=== PATIENT | male | born 1970 | race American Indian/Alaskan Native ===

== ENCOUNTER 2017-01-19 14:41 | Emergency (ER) | payer BC, OTHER ==
[2017-01-19 14:54] VITALS: BP 133/76
[2017-01-19] MEDS ORDERED: Diphtheria,Pertussis(Acell),Tetanus Vaccine 0.5 ML Syringe IM ONE (15:02)
[2017-01-19] MEDS ORDERED: Lidocaine 1% 20 ML MDV ONE (15:07)
[2017-01-19] MEDS ORDERED: Octyl 2-Cyanoacrylate 1 APPLIC TUBE ONE (15:11)
--- NOTE | 2017-01-19 15:19 | EDM.PDOC ---
ED HPI Skin/Rash - General Chief Complaint: Laceration Stated Complaint: CUT FINGER ON LT HAND Time Seen by Provider: 01/19/17 15:01 - History of Present Illness INITIAL COMMENTS - FREE TEXT/NARRATIVE: HISTORY AND PHYSICAL: History of present illness: The patient is a 46-year-old male who is unsure of his last tetanus shot presents with a superficial laceration to his left thumb that occurred while he was cutting lettuce at home. Patient was concerned because initially it was bleeding a lot and he put a pressure dressing on. He doesn't complain of pain in the area and there are no other injuries on the hand or fingers. Patient has a history of multiple other lacerations and one surgery on the thumb in the past. Neurosensory is intact. Review of systems: As per history of present illness and below otherwise all systems reviewed and negative. Past medical history: As per history of present illness and as reviewed below otherwise noncontributory. Surgical history: As per history of present illness and as reviewed below otherwise noncontributory. Social history: No reported history of drug or alcohol abuse. Family history: As per history of present illness and as reviewed below otherwise noncontributory. Physical exam: General: Well-developed overweight male who is nontoxic and [facility] and review by me HEENT: Atraumatic, normocephalic, negative for conjunctival pallor or scleral icterus, mucous membranes moist, throat clear, neck supple, nontender, trachea midline. Lungs: Clear to auscultation, breath sounds equal bilaterally, chest nontender. Heart: S1S2, regular rate and rhythm no overt murmurs Genitourinary: Deferred. Rectal: Deferred. Extremities: Atraumatic except for the soft tissue tuft of the left thumb where there is a 1.2 cm total length superficial laceration with a slight curve to it. There is no bleeding appreciated no swelling no tenderness and the skin edges are reapproximated. The laceration does not involve the nail. Neurosensory is intact and flexion and extension at the distal phalanx is intact., negative for cords or calf pain. Neurovascular unremarkable. Neuro: Awake, alert, oriented. Cranial nerves II through XII unremarkable. Cerebellum unremarkable. Motor and sensory unremarkable throughout. Exam nonfocal. Diagnostics: [] Therapeutics: Wound care Dermabond The patient specifically asked for Dermabond for this and as it is very superficial I am willing to do this. Advised that he needs to reduce movement of the finger to allow it to adhere and close. Advised for followup either here or at [facility]. Impression: Superficial left thumb laceration Definitive disposition and diagnosis as appropriate pending reevaluation and review of above. - Related Data Allergies Allergy/AdvReac Type Severity Reaction Status Date / Time No Known Allergies Allergy Verified 01/19/17 14:49 Home Meds: Ambulatory Orders Medication Instructions Recorded Confirmed Aspirin [Halfprin] 81 mg PO ONETIME 01/19/17 01/19/17 Lisinopril [Lisinopril] 1 tab PO DAILY 01/19/17 01/19/17 Simvastatin [Zocor] 40 mg PO BEDTIME 01/19/17 01/19/17 Past Medical History Cardiovascular History: Reports: High cholesterol, Hypertension - Past Surgical History HEENT Surgical History: Reports: Other (see below) Other HEENT Surgeries/Procedures: left eye surgery Musculoskeletal Surgical History: Reports: Other (see below) Other Musculoskeletal Surgeries/Procedures:: achellies tendon surgery left; left thumb surgery Social & Family History - Family History Family Medical History: Noncontributory - Tobacco Use Smoking Status *Q: Never Smoker - Caffeine Use Caffeine Use: Reports: Coffee - Recreational Drug Use Recreational Drug Use: No ED ROS GENERAL - Review of Systems Review Of Systems: ROS reveals no pertinent complaints other than HPI. ED EXAM, SKIN/RASH Exam: See Below (See dictation) Course - Vital Signs Last Recorded V/S: Last Vital Signs Temp 36.4 C 01/19/17 14:49 Pulse 60 01/19/17 14:49 Resp 18 01/19/17 14:49 BP 133/76 01/19/17 14:49 Pulse Ox 96 01/19/17 14:49 - Orders/Labs/Meds Orders: Active Orders 24 hr Category Date Time Status Communication Order [RC] STAT Care 01/19/17 15:10 Ordered Vaccines to be Administered [RC] PER UNIT ROUTINE Care 01/19/17 15:02 Active Meds: Medications Discontinued Medications Generic Name Dose Route Start Last Admin Trade Name Freq PRN Reason Stop Dose Admin Diphtheria/Tetanus/Acell Pertussis 0.5 ml 01/19/17 15:02 01/19/17 15:08 Adacel IM 01/19/17 15:03 0.5 ml .ONCE ONE Administration Lidocaine HCl Confirm 01/19/17 15:07 Xylocaine 1% Administered 01/19/17 15:08 Dose 20 ml .ROUTE .STK-MED ONE Departure - Departure Time of Disposition: 15:19 Disposition: Home, Self-Care 01 Condition: good Clinical Impression: Laceration of thumb Qualifiers: Encounter type: initial encounter Laterality: left Qualified Code(s): S61.012A - Laceration without foreign body of left thumb without damage to nail, initial encounter Forms: ED Department Discharge Additional Instructions: The following information is given to patients seen in the emergency department who are being discharged to home. This information is to outline your options for follow-up care. We provide all patients seen in our emergency department with a follow-up referral. The need for follow-up, as well as the timing and circumstances, are variable depending upon the specifics of your emergency department visit. If you don't have a primary care physician on staff, we will provide you with a referral. We always advise you to contact your personal physician following an emergency department visit to inform them of the circumstance of the visit and for follow-up with them and/or the need for any referrals to a consulting specialist. The emergency department will also refer you to a specialist when appropriate. This referral assures that you have the opportunity for followup care with a specialist. All of these measure are taken in an effort to provide you with optimal care, which includes your followup. Under all circumstances we always encourage you to contact your private physician who remains a resource for coordinating your care. When calling for followup care, please make the office aware that this follow-up is from your recent emergency room visit. If for any reason you are refused follow-up, please contact the [facility] emergency department at and ask to speak to the emergency department charge nurse. [facility] Primary care- Internal Medicine and Family [address] [address] Please keep area clean and dry and do not apply any topical ointments to the laceration. Please followup at [facility] and return here as needed and as discussed - My Orders Last 24 Hours: My Active Orders 01/19/17 15:02 Vaccines to be Administered [RC] PER UNIT ROUTINE 01/19/17 15:10 Communication Order [RC] STAT - Assessment/Plan Last 24 Hours: My Active Orders 01/19/17 15:02 Vaccines to be Administered [RC] PER UNIT ROUTINE 01/19/17 15:10 Communication Order [RC] STAT
== END 2017-01-19 15:20 | disposition home or self-care (01) ==
LOC: MW.ED 14:41
DX: S61.012A Laceration without foreign body of left thumb without damage to nail, initial encounter (principal); I10 Essential (primary) hypertension; E78.00 Pure hypercholesterolemia, unspecified; Z98.890 Other specified postprocedural states; Z23 Encounter for immunization; Z79.899 Other long term (current) drug therapy; W45.8XXA Other foreign body or object entering through skin, initial encounter; Y93.89 Activity, other specified; Y92.009 Unspecified place in unspecified non-institutional (private) residence as the place of occurrence of the external cause
CPT/HCPCS: 12001; 90471; 90715; 99282; A9270

== ENCOUNTER 2017-02-08 08:46 | Emergency (ER) | payer BC, OTHER ==
--- NOTE | 2017-02-08 09:13 | EDM.PDOC ---
ED HPI EYE COMPLAINT - General Chief Complaint: Eye Problems Stated Complaint: EYE Time Seen by Provider: 02/08/17 09:04 - History of Present Illness INITIAL COMMENTS - FREE TEXT/NARRATIVE: HISTORY AND PHYSICAL: History of present illness: The patient is a 46-year-old male with a history of a detached retina many years ago and loss of vision in his left eye who presents with complaints of persistent itching drainage and aching of his left eye that started 3 days ago. According to the patient he had matting of his eye redness and itching and went to see a doctor at [facility] who prescribed him gentamicin drops. He's been using those but does not feel like his symptoms are improving and now is complaining of a left-sided headache in his forehead and his scalp and at its side. He's been itching and scratching his forehead skin but has had no fever chills nausea vomiting no ear pain no throat pain. He states he's been compliant with digoxin but they do not see any improvement. As a result of the patient's history has complete loss of vision in the left eye and does not wear any contacts. Review of systems: As per history of present illness and below otherwise all systems reviewed and negative. Past medical history: As per history of present illness and as reviewed below otherwise noncontributory. Surgical history: As per history of present illness and as reviewed below otherwise noncontributory. Social history: No reported history of drug or alcohol abuse. Family history: As per history of present illness and as reviewed below otherwise noncontributory. Physical exam: General: Well-developed well-nourished man who is slightly overweight vital signs been reviewed by me. 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 There is no eyelid swelling matting but there is some clear drainage. Throughout the exam the patient continually is rubbing his left eye and his left forehead. There is no conjunctival pallor or scleral icterus, mucous membranes moist, throat clear, neck supple, nontender, trachea midline. There is no cervical adenopathy or nuchal rigidity. At the forehead there is a maculopapular rash seen which is only seen on the left side with 2 small open areas near the hairline. This a maculopapular rash extends into the frontal scalp and does not cross the midline. Lungs: Clear to auscultation, breath sounds equal bilaterally, chest nontender. Heart: S1S2, regular, negative for clicks, rubs, or JVD. Abdomen: Soft, nondistended, nontender. NABS Skin: There are no rashes seen on the remainder of the head and neck were the extremities grossly. Skin turgor is normal Genitourinary: Deferred. Rectal: Deferred. Extremities: Atraumatic, negative for cords or calf pain. Neurovascular unremarkable. Neuro: Awake, alert, oriented. Cranial nerves II through XII unremarkable. Cerebellum unremarkable. Motor and sensory unremarkable throughout. Exam nonfocal. Diagnostics: Therapeutics: Proparacaine to left eye 0927: As discussed with Dr. Oneill of Optho at [facility] and he will see the patient 11 AM. He recommends to start him on antivirals. Impression: Persistent left thigh pain with history of chronic blindness and new rash likely shingles Definitive disposition and diagnosis as appropriate pending reevaluation and review of above. - Related Data Allergies/ADRs: Allergies No Known Allergies Allergy (Verified 02/08/17 08:51) Home Meds: Ambulatory Orders Medication Instructions Recorded Confirmed Aspirin [Halfprin] 81 mg PO ONETIME 01/19/17 02/08/17 Lisinopril [Lisinopril] 1 tab PO DAILY 01/19/17 02/08/17 Simvastatin [Zocor] 40 mg PO BEDTIME 01/19/17 02/08/17 Past Medical History HEENT History: Reports: None Cardiovascular History: Reports: High cholesterol, Hypertension Respiratory History: Reports: None Gastrointestinal History: Reports: None Genitourinary History: Reports: None Musculoskeletal History: Reports: None Neurological History: Reports: None Psychiatric History: Reports: None Endocrine/Metabolic History: Reports: None Hematologic History: Reports: None Immunologic History: Reports: None Oncologic (Cancer) History: Reports: None Dermatologic History: Reports: None - Infectious Disease History Infectious Disease History: Reports: None - Past Surgical History HEENT Surgical History: Reports: Other (see below) Other HEENT Surgeries/Procedures: left eye surgery Musculoskeletal Surgical History: Reports: Other (see below) Other Musculoskeletal Surgeries/Procedures:: achellies tendon surgery left; left thumb surgery Social & Family History - Family History Family Medical History: Noncontributory - Tobacco Use Smoking Status *Q: Never Smoker - Caffeine Use Caffeine Use: Reports: Coffee - Recreational Drug Use Recreational Drug Use: No ED ROS GENERAL - Review of Systems Review Of Systems: ROS reveals no pertinent complaints other than HPI. ED EXAM GENERAL W FULL EYE - Physical Exam Exam: See Below (See dictation) Course - Vital Signs Last Recorded V/S: Last Vital Signs Temp 36.9 C 02/08/17 08:52 Pulse 79 02/08/17 08:52 Resp 16 02/08/17 08:52 BP 152/81 H 02/08/17 08:52 Pulse Ox 98 02/08/17 08:52 - Orders/Labs/Meds Meds: Medications Discontinued Medications Generic Name Dose Route Start Last Admin Trade Name Freq PRN Reason Stop Dose Admin Proparacaine HCl 2 ml 02/08/17 09:15 02/08/17 09:24 Proparacaine 0.5% Ophth Soln EYELF 02/08/17 09:16 2 ml ONETIME ONE Administration Departure - Departure Time of Disposition: 09:28 Disposition: Home, Self-Care 01 Condition: good Clinical Impression: Left eye pain Shingles Qualifiers: Herpes zoster complications: without complications Qualified Code(s): B02.9 - Zoster without complications Forms: ED Department Discharge Additional Instructions: The following information is given to patients seen in the emergency department who are being discharged to home. This information is to outline your options for follow-up care. We provide all patients seen in our emergency department with a follow-up referral. The need for follow-up, as well as the timing and circumstances, are variable depending upon the specifics of your emergency department visit. If you don't have a primary care physician on staff, we will provide you with a referral. We always advise you to contact your personal physician following an emergency department visit to inform them of the circumstance of the visit and for follow-up with them and/or the need for any referrals to a consulting specialist. The emergency department will also refer you to a specialist when appropriate. This referral assures that you have the opportunity for followup care with a specialist. All of these measure are taken in an effort to provide you with optimal care, which includes your followup. Under all circumstances we always encourage you to contact your private physician who remains a resource for coordinating your care. When calling for followup care, please make the office aware that this follow-up is from your recent emergency room visit. If for any reason you are refused follow-up, please contact the [facility] emergency department at and ask to speak to the emergency department charge nurse. [address] [address] Please go to the ophthalmology clinic at [facility] across the street and go to the door #[address] Oneill at 11 AM. These fill your prescription for antiviral return to ER as needed and as discussed
[2017-02-08] MEDS ORDERED: Proparacaine 0.5% Ophth Soln 15 ML Bottle EYELF ONE (09:15)
[2017-02-08 09:40] VITALS: BP 148/70
== END 2017-02-08 09:30 | disposition home or self-care (01) ==
LOC: MW.ED 08:46
DX: H57.12 Ocular pain, left eye (principal); B02.9 Zoster without complications; I10 Essential (primary) hypertension; E78.00 Pure hypercholesterolemia, unspecified; Z98.890 Other specified postprocedural states; Z79.899 Other long term (current) drug therapy
CPT/HCPCS: 99282; 99283

== ENCOUNTER 2017-02-11 00:49 | Emergency (ER) | payer BC, OTHER ==
[2017-02-11] MEDS ORDERED: Acetaminophen/HYDROcodone 325-5 MG Tab PO ONE (02:01)
[2017-02-11] MEDS ORDERED: Proparacaine 0.5% Ophth Soln 15 ML Bottle EYELF STA (02:05)
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
[2017-02-11 04:09] VITALS: BP 128/81
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
== END 2017-02-11 03:41 | disposition home or self-care (01) ==
LOC: MW.ED 00:49
DX: R51 Headache (principal); B02.9 Zoster without complications; H54.42 Blindness, left eye, normal vision right eye; Z79.82 Long term (current) use of aspirin; Z98.890 Other specified postprocedural states
CPT/HCPCS: 70450; 99283; A9270

== ENCOUNTER 2017-03-17 16:01 | Emergency (ER) | payer BC, OTHER ==
--- NOTE | 2017-03-17 16:23 | EDM.PDOC ---
ED HPI Skin/Rash - General Chief Complaint: Skin Complaint Stated Complaint: LT EYE HURTS Time Seen by Provider: 03/17/17 16:05 Source: Reports: Patient, Family History Limitations: Reports: No limitations - History of Present Illness INITIAL COMMENTS - FREE TEXT/NARRATIVE: History of present illness: [47-year-old male presenting status post shingles. Patient indicates he has continued pain, neuralgia, and neuropathy along the dermatome across his neck and face to the herpetic lesions have been. Patient indicates he completed all antivirals and he no longer has any visual lesions but he continues to have pain the same if not worse than when he had the open sores.] Review of systems: As per history of present illness and below otherwise all systems reviewed and negative. Past medical history: As per history of present illness and as reviewed below otherwise noncontributory. Surgical history: As per history of present illness and as reviewed below otherwise noncontributory. Social history: No reported history of drug or alcohol abuse. Family history: As per history of present illness and as reviewed below otherwise noncontributory. Physical exam: HEENT: Atraumatic, normocephalic, pupils reactive, negative for conjunctival pallor or scleral icterus, mucous membranes moist, throat clear, neck supple, nontender, trachea midline. Lungs: Clear to auscultation, breath sounds equal bilaterally, chest nontender. Heart: S1S2, regular, negative for clicks, rubs, or JVD. Abdomen: Soft, nondistended, nontender. Negative for masses or hepatosplenomegaly. Negative for costovertebral tenderness. Pelvis: Stable nontender. Genitourinary: Deferred. Rectal: Deferred. Extremities: Atraumatic, negative for cords or calf pain. Neurovascular unremarkable. Neuro: Awake, alert, oriented. Cranial nerves II through XII unremarkable. Cerebellum unremarkable. Motor and sensory unremarkable throughout. Exam nonfocal. Care discussed with patient and the necessity to continue antivirals as neuropathic pain only responded to either 10 or 11 6 and or antivirals dependent on the mechanism of injury. In this case a known shingles outbreak often will be painful for a period of time after her wounds are resolved. Patient indicated he understood and would "try more medicine". Always has been benign save for subjective complaints of pain. Diagnostics: [] Therapeutics: [] Impression: [Neuralgia secondary to shingles] Plan: [Antivirals] Definitive disposition and diagnosis as appropriate pending reevaluation and review of above. - Related Data Allergies Allergy/AdvReac Type Severity Reaction Status Date / Time No Known Allergies Allergy Verified 02/11/17 00:51 Home Meds: Ambulatory Orders Medication Instructions Recorded Confirmed Aspirin [Halfprin] 81 mg PO ONETIME 01/19/17 02/11/17 Lisinopril [Lisinopril] 1 tab PO DAILY 01/19/17 02/11/17 Simvastatin [Zocor] 40 mg PO BEDTIME 01/19/17 02/11/17 Past Medical History HEENT History: Reports: None Cardiovascular History: Reports: High cholesterol, Hypertension Respiratory History: Reports: None Gastrointestinal History: Reports: None Genitourinary History: Reports: None Musculoskeletal History: Reports: None Neurological History: Reports: None Psychiatric History: Reports: None Endocrine/Metabolic History: Reports: Obesity/BMI 30+ Hematologic History: Reports: None Immunologic History: Reports: None Oncologic (Cancer) History: Reports: None Dermatologic History: Reports: None - Infectious Disease History Infectious Disease History: Reports: None - Past Surgical History Head Surgeries/Procedures: Reports: None HEENT Surgical History: Reports: Other (see below) Other HEENT Surgeries/Procedures: left eye surgery, 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 Musculoskeletal Surgical History: Reports: Other (see below) Other Musculoskeletal Surgeries/Procedures:: achellies tendon surgery left; left thumb surgery Social & Family History - Family History Family Medical History: Noncontributory - Tobacco Use Smoking Status *Q: Never Smoker - Caffeine Use Caffeine Use: Reports: Coffee - Recreational Drug Use Recreational Drug Use: No ED ROS GENERAL - Review of Systems Review Of Systems: See Below (See history of present illness) ED EXAM, SKIN/RASH Exam: See Below (The history of present illness) Departure - Departure Time of Disposition: 16:22 Disposition: Home, Self-Care 01 Condition: good Clinical Impression: Neuralgia Instructions: Nehemiah, [id number] Forms: ED Department Discharge Additional Instructions: The following information is given to patients seen in the emergency department who are being discharged to home. This information is to outline your options for follow-up care. We provide all patients seen in our emergency department with a follow-up referral. The need for follow-up, as well as the timing and circumstances, are variable depending upon the specifics of your emergency department visit. If you don't have a primary care physician on staff, we will provide you with a referral. We always advise you to contact your personal physician following an emergency department visit to inform them of the circumstance of the visit and for follow-up with them and/or the need for any referrals to a consulting specialist. The emergency department will also refer you to a specialist when appropriate. This referral assures that you have the opportunity for follow-up care with a specialist. All of these measure are taken in an effort to provide you with optimal care, which includes your follow-up. Under all circumstances we always encourage you to contact your private physician who remains a resource for coordinating your care. When calling for follow-up care, please make the office aware that this follow-up is from your recent emergency room visit. If for any reason you are refused follow-up, please contact the [facility] Emergency Department at and asked to speak to the emergency department charge nurse. Take medication a directed Followup with PCP as discussed Return to ED as needed as discussed
[2017-03-17 16:48] VITALS: BP 127/73
== END 2017-03-17 16:48 | disposition home or self-care (01) ==
LOC: MW.ED 16:01
DX: M79.2 Neuralgia and neuritis, unspecified (principal); E78.00 Pure hypercholesterolemia, unspecified; I10 Essential (primary) hypertension; E66.9 Obesity, unspecified
CPT/HCPCS: 99283